=== PATIENT | male | born 1950 | race Two or more races ===

== ENCOUNTER 2020-11-13 17:25 | Outpatient (CLI) | payer OTHER | END 2020-11-13 17:33 | disposition home or self-care (01) | LOC: LAB 17:25 | PROVIDERS: ATTEND Urology | DX: R97.20 Elevated prostate specific antigen [PSA] (principal) ==

== ENCOUNTER 2021-01-03 07:13 | Outpatient (CLI) | payer OTHER | END 2021-01-03 07:23 | disposition home or self-care (01) | LOC: SONOGRAMA 07:13 | PROVIDERS: ATTEND Urology | DX: C61 Malignant neoplasm of prostate (principal); D29.1 Benign neoplasm of prostate; R97.20 Elevated prostate specific antigen [PSA] ==

== ENCOUNTER 2023-05-25 12:39 | Emergency (ER) | payer OTHER ==
[~2023-05-25] VITALS: Ht 167.6 cm; Wt 65.8 kg
[2023-05-25] MEDS ORDERED: GUAIFENESIN 200 MG/10 ML BLIST.PACK PO STA (14:33)
[2023-05-25] MEDS ORDERED: METHYLPREDNISOLONE SOD SUCC 125 MG VIAL IM STA (14:34)
[2023-05-25] MEDS ORDERED: CEFTRIAXONE SODIUM 1,000 MG VIAL IM STA (14:34)
[2023-05-25 16:06] LABS: HEMOGLOBIN 15.2 g/dL (13-16.00); MEAN CELL VOLUME 90.3 fL (80.0-100.00); MEAN CORPUSCULAR HEMOGLOBIN 31.1 pg (27.00-32.0); MEAN CORPUSCULAR HGB CONC 34.5 g/dl (32.0-36.0); PLATELET COUNT 186 K/uL (150-450); RED BLOOD COUNT 4.87 M/uL (4.00-6.00); RED CELL DISTRIBUTION WIDTH 13.8 % (11.5-14.5)
[2023-05-25] MEDS ORDERED: GENTAMICIN SULFATE 0.15 MG/DR DROPS 5ML OP STA (16:37)
== END 2023-05-25 16:56 | disposition home or self-care (01) ==
LOC: ER 12:39
PROVIDERS: General Practice
DX: R05.8 Other specified cough (principal); Z20.822 Contact with and (suspected) exposure to COVID-19
CPT/HCPCS: 36415; 96365; 99282; J0696; J2930